=== PATIENT | male | born 1935 | race Caucasian/White ===

== ENCOUNTER → 2018-06-11 | Outpatient (CLI) | payer MEDICARE, OTHER ==
[~2018-06-11] MED LIST: CLOTRIMAZOLE/BETAMETHASONE 45 GM CR TP ONE; MUPIROCIN 2% OINT 22 GM TUBE ONE
--- NOTE | 2018-06-11 16:41 | Diagnostic Imaging Report ---
Exam: Right lower leg radiographs-3 views History: Status post fall. Comparison: None. Findings: No evidence of acute fracture or malalignment. The ankle mortise is preserved. There is soft tissue edema within the medial ankle. There is a well-corticated bony fragment in the medial ankle soft tissues. The tibia and fibula are unremarkable in appearance. Partially seen plantar calcaneal spur. Impression: Medial ankle soft tissue edema without evidence of acute fracture or malalignment. Well-corticated bony fragment in the medial ankle soft tissues likely reflects sequela of prior trauma. Signed by: Dr. Gus Ryder MD on 06/11/2018 4:38 PM
== END ==
LOC: WCC 14:35
PROVIDERS: ATTEND Family Medicine
DX: L01.00 Impetigo, unspecified (principal); L08.9 Local infection of the skin and subcutaneous tissue, unspecified; I10 Essential (primary) hypertension; W01.198A Fall on same level from slipping, tripping and stumbling with subsequent striking against other object, initial encounter

== ENCOUNTER 2018-06-17 14:01 | Outpatient (RCR) | payer MEDICARE, OTHER | END 2018-07-10 | disposition home or self-care (01) | LOC: WCC 14:01 | PROVIDERS: ATTEND Family Medicine Adult Medicine | DX: L08.9 Local infection of the skin and subcutaneous tissue, unspecified (principal); L01.00 Impetigo, unspecified; I10 Essential (primary) hypertension; W01.198A Fall on same level from slipping, tripping and stumbling with subsequent striking against other object, initial encounter ==